=== PATIENT | female | born 1980 | race African-American/Black ===

== ENCOUNTER 2020-10-26 07:56 | Emergency (ER) | payer BC ==
[2020-10-26 08:11] VITALS: TEMP 98.9; BMI 23.4
[2020-10-26] MEDS ORDERED: ACETAMINOPHEN 325 MG TABLET (FP) PO ONE (08:44)
[2020-10-26] MEDS ORDERED: ACETAMINOPHEN 325 MG TABLET (FP) ONE (09:13)
[2020-10-26 10:09] LABS: CHLORIDE 103 mmol/L (98-107); SODIUM 138 mmol/L (136-145)
[2020-10-26 10:10] LABS: BASO % 0.7 % (0-2.0); EOS % 2.6 % (0-4.5); HEMATOCRIT 39.3 % (32.4-45.2); HEMOGLOBIN 12.8 GM/dL (10.7-15.3); LYMPH % 16.3 % (8-40); MCH 28.3 pg (25.7-33.7); MCHC 32.7 g/dl (32.0-36.0); MEAN CELL VOLUME 86.6 fl (80-96); MEAN PLT VOLUME 8.3 fl (7.5-11.1); MONO % 6.1 % (3.8-10.2); NEUT % 74.3 % (42.8-82.8); PLATELET COUNT 422 K/MM3 (134-434); RBC 4.53 M/mm3 (3.60-5.2); WHITE BLOOD COUNT 12.4 K/mm3 (4.0-10.0)
[2020-10-26 10:11] LABS: ALBUMIN 4.2 g/dl (3.4-5.0); ANION GAP 9 MMOL/L (8-16); BLOOD UREA NITROGEN 8.2 mg/dL (7-18); CO2 27 mmol/L (21-32); GLUCOSE,RANDOM 87 mg/dL (74-106); LIPASE 46 U/L (73-393)
[2020-10-26 10:14] LABS: SGOT/AST 20 U/L (15-37); SGPT/ALT 26 U/L (13-61)
[2020-10-26 10:16] LABS: BILIRUBIN,TOTAL 0.8 mg/dL (0.2-1); TOT PROT 7.1 g/dl (6.4-8.2)
[2020-10-26 10:17] LABS: URINE APPEARANCE CLEAR; URINE BILIRUBIN 1+ (NEGATIVE); URINE COLOR DK YELLOW; URINE GLUCOSE (UA) NEGATIVE (NEGATIVE); URINE KETONE 1+ (NEGATIVE); URINE LEUK ESTERASE NEGATIVE (NEGATIVE); URINE NITRITE NEGATIVE (NEGATIVE); URINE PROTEIN TRACE (NEGATIVE)
[2020-10-26 10:17] LABS: ALK PHOS 72 U/L (45-117)
[2020-10-26 10:20] LABS: HCG,QUALITATIVE URINE Negative
[2020-10-26 10:25] LABS: CREATININE 0.6 mg/dL (0.55-1.3)
[2020-10-26 14:53] VITALS: BP 123/86; PULSE 68
== END 2020-10-26 14:53 | disposition home or self-care (01) ==
LOC: JER 07:56
DX: R14.0 Abdominal distension (gaseous) (principal)
CPT/HCPCS: 36415; 71046-TC-FY; 74177-TC; 80053; 81003; 83690; 84484; 84703; 85025; 87086; 93005; 93010; 99285-25; Q9967

== ENCOUNTER 2021-02-13 11:21 | Inpatient (IN) | payer BC ==
[2021-02-13 13:39] LABS: BASO % 1.2 % (0-2.0); EOS % 3.5 % (0-4.5); HEMATOCRIT 42.6 % (32.4-45.2); HEMOGLOBIN 14.2 GM/dL (10.7-15.3); MCH 28.3 pg (25.7-33.7); MCHC 33.3 g/dl (32.0-36.0); MEAN PLT VOLUME 7.9 fl (7.5-11.1); MONO % 6.3 % (3.8-10.2); PLATELET COUNT 476 10^3/uL (134-434); RBC 5.01 M/mm3 (3.60-5.2); RDW 13.9 % (11.6-15.6); WHITE BLOOD COUNT 9.9 K/mm3 (4.0-10.0)
[2021-02-13 13:43] LABS: URINE APPEARANCE CLEAR; URINE BILIRUBIN NEGATIVE (NEGATIVE); URINE COLOR YELLOW; URINE GLUCOSE (UA) NEGATIVE (NEGATIVE); URINE KETONE NEGATIVE (NEGATIVE); URINE LEUK ESTERASE NEGATIVE (NEGATIVE); URINE NITRITE NEGATIVE (NEGATIVE); URINE PROTEIN NEGATIVE (NEGATIVE); URINE UROBILINOGEN 0.2 mg/dL (0.2-1.0)
[2021-02-13 14:04] LABS: ALBUMIN 4.2 g/dl (3.4-5.0); CALCIUM 9.8 mg/dL (8.5-10.1)
[2021-02-13 14:05] LABS: BLOOD UREA NITROGEN 9.1 mg/dL (7-18)
[2021-02-13 14:08] LABS: CREATININE 0.7 mg/dL (0.55-1.3); PHOSPHOROUS 3.6 mg/dL (2.5-4.9)
[2021-02-13 14:09] LABS: BILIRUBIN,TOTAL 0.5 mg/dL (0.2-1); TOT PROT 7.8 g/dl (6.4-8.2)
[2021-02-13] MEDS ORDERED: ASPIRIN 81 MG CHEWABLE TABLETS PO ONE ×2 (14:28→16:34)
[2021-02-13] MEDS ORDERED: ASPIRIN 81 MG CHEWABLE TABLETS ONE ×2 (14:53→16:45)
[2021-02-14 02:10] VITALS: BMI 24.8
[2021-02-14 08:22] LABS: EOS % 4.4 % (0-4.5); HEMATOCRIT 39.9 % (32.4-45.2); HEMOGLOBIN 13.5 GM/dL (10.7-15.3); LYMPH % 38.2 % (8-40); MCH 28.5 pg (25.7-33.7); MCHC 33.9 g/dl (32.0-36.0); MEAN PLT VOLUME 7.7 fl (7.5-11.1); MONO % 7.3 % (3.8-10.2); NEUT % 47.1 % (42.8-82.8); PLATELET COUNT 423 10^3/uL (134-434); RBC 4.75 M/mm3 (3.60-5.2); RDW 13.8 % (11.6-15.6); WHITE BLOOD COUNT 8.7 K/mm3 (4.0-10.0)
[2021-02-14 08:42] LABS: CALCIUM 8.8 mg/dL (8.5-10.1)
[2021-02-14 08:43] LABS: ALBUMIN 3.7 g/dl (3.4-5.0); BLOOD UREA NITROGEN 12.9 mg/dL (7-18); MAGNESIUM 1.8 mg/dL (1.8-2.4)
[2021-02-14 08:46] LABS: CREATININE 0.7 mg/dL (0.55-1.3)
[2021-02-14 08:47] LABS: BILIRUBIN,TOTAL 0.5 mg/dL (0.2-1)
[2021-02-14] MEDS: ASPIRIN 81 MG CHEWABLE TABLETS PO SCH (11:49)
[2021-02-14] MEDS: ENOXAPARIN NA (PORCINE) 40 MG/0.4 ML DISP.SYRIN SQ SCH (11:49)
[2021-02-14 13:57] LABS: COCAINE, UR NEGATIVE (NEGATIVE); URINE BARBITURATES NEGATIVE (NEGATIVE)
[2021-02-14 13:59] LABS: OPIATES, URI NEGATIVE (NEGATIVE); PHENCYCLIDINE,URINE NEGATIVE (NEGATIVE)
[2021-02-14 14:15] LABS: METHADONE, UR NEGATIVE (NEGATIVE); URINE AMPHETAMINES NEGATIVE (NEGATIVE); URINE BENZODIAZEPINES NEGATIVE (NEGATIVE)
[2021-02-14 19:03] LABS: INR 0.97 (0.83-1.09); PROTHROMBIN TIME (PATIENT) 11.9 SEC (9.7-13.0)
[2021-02-14 19:06] LABS: ACTIVATED PTT 36.2 SECONDS (25.2-36.5)
[2021-02-14] MEDS: ATORVASTATIN CA 40 MG TABLET (FP) PO SCH (21:38)
[2021-02-15] MEDS ORDERED: ACETAMINOPHEN 1000 MG/100 ML VIAL (NON FORMULARY) IVPB ONE (01:55)
[2021-02-15 08:20] LABS: BASO % 1.2 % (0-2.0); EOS % 5.1 % (0-4.5); HEMATOCRIT 41.4 % (32.4-45.2); HEMOGLOBIN 13.8 GM/dL (10.7-15.3); LYMPH % 37.1 % (8-40); MCH 28.1 pg (25.7-33.7); MCHC 33.3 g/dl (32.0-36.0); MEAN CELL VOLUME 84.3 fl (80-96); MEAN PLT VOLUME 7.7 fl (7.5-11.1); MONO % 8.2 % (3.8-10.2); NEUT % 48.4 % (42.8-82.8); PLATELET COUNT 415 10^3/uL (134-434); RBC 4.91 M/mm3 (3.60-5.2); WHITE BLOOD COUNT 7.2 K/mm3 (4.0-10.0)
[2021-02-15 08:27] LABS: INR 0.98 (0.83-1.09); PROTHROMBIN TIME (PATIENT) 11.9 SEC (9.7-13.0)
[2021-02-15 08:30] LABS: ACTIVATED PTT 32.6 SECONDS (25.2-36.5)
[2021-02-15 08:47] LABS: BLOOD UREA NITROGEN 12.8 mg/dL (7-18); CALCIUM 8.9 mg/dL (8.5-10.1); MAGNESIUM 2.2 mg/dL (1.8-2.4)
[2021-02-15 08:50] LABS: CREATININE 0.7 mg/dL (0.55-1.3); PHOSPHOROUS 3.9 mg/dL (2.5-4.9)
[2021-02-15] MEDS: ENOXAPARIN NA (PORCINE) 40 MG/0.4 ML DISP.SYRIN SQ SCH (09:22)
[2021-02-15] MEDS: ASPIRIN 81 MG CHEWABLE TABLETS PO SCH (09:22)
[2021-02-15 13:32] LABS: HIV INTERPRETATION NEGATIVE (NEGATIVE)
[2021-02-15] MEDS: ATORVASTATIN CA 40 MG TABLET (FP) PO SCH (21:12)
[2021-02-16] MEDS: ASPIRIN 81 MG CHEWABLE TABLETS PO SCH (09:32)
[2021-02-16] MEDS: ENOXAPARIN NA (PORCINE) 40 MG/0.4 ML DISP.SYRIN SQ SCH (09:32)
[2021-02-16] MEDS ORDERED: SODIUM CHLORIDE 1,000 ML IV STA (12:20)
[2021-02-16 17:06] LABS: FREE KAPPA,SERUM 14.9 mg/L (3.3-19.4)
[2021-02-16] MEDS: ATORVASTATIN CA 40 MG TABLET (FP) PO SCH (21:15)
[2021-02-17 04:08] LABS: FREE KAP CHN UR 12.94 mg/L (0.63-113.79); KAPPA LAMBDA RATIO URIN 15.22 (1.03-31.76)
[2021-02-17] MEDS ORDERED: LACTATED RINGERS SOLUTION 1,000 ML/1,000 ML INFUS.BAG IV SCH (08:15)
[2021-02-17 08:48] LABS: HEMOGLOBIN 13.4 GM/dL (10.7-15.3); MCH 28.6 pg (25.7-33.7); MCHC 34.5 g/dl (32.0-36.0); MEAN PLT VOLUME 7.7 fl (7.5-11.1); PLATELET COUNT 389 10^3/uL (134-434); RDW 13.2 % (11.6-15.6); WHITE BLOOD COUNT 9.1 K/mm3 (4.0-10.0)
[2021-02-17 09:20] LABS: BLOOD UREA NITROGEN 13.2 mg/dL (7-18); CALCIUM 9.1 mg/dL (8.5-10.1)
[2021-02-17 09:23] LABS: CREATININE 0.6 mg/dL (0.55-1.3)
[2021-02-17] MEDS ORDERED: PT OWN MED DRAWER 7, Y5N ONE (12:31)
[2021-02-17 13:09] LABS: DRVVT - 30.9 sec (0.0-47.0)
[2021-02-17] MEDS: NICOTINE 14 MG/24 HOURS TOPICAL PATCH TD SCH (14:28)
[2021-02-17] MEDS: LISINOPRIL 5 MG TABLET PO SCH (14:28)
[2021-02-17] MEDS: ATORVASTATIN CA 40 MG TABLET (FP) PO SCH (22:02)
[2021-02-17] MEDS ORDERED: MELATONIN 5 MG TABLETS PO ONE (23:18)
[2021-02-18] MEDS ORDERED: PT OWN MED DRAWER 7, Y5N ONE (09:52)
[2021-02-18] MEDS: ENOXAPARIN NA (PORCINE) 40 MG/0.4 ML DISP.SYRIN SQ SCH (09:58)
[2021-02-18] MEDS: ASPIRIN 81 MG CHEWABLE TABLETS PO SCH (09:58)
[2021-02-18] MEDS: LISINOPRIL 5 MG TABLET PO SCH (09:59)
[2021-02-18] MEDS: NICOTINE 14 MG/24 HOURS TOPICAL PATCH TD SCH (09:59)
[2021-02-18] MEDS: GABAPENTIN 100 MG CAPSULE PO SCH ×2 (13:29→21:29)
[2021-02-18] MEDS: ATORVASTATIN CA 40 MG TABLET (FP) PO SCH (21:29)
[2021-02-19] MEDS: GABAPENTIN 100 MG CAPSULE PO SCH ×3 (05:58→22:58)
[2021-02-19] MEDS ORDERED: PT OWN MED DRAWER 7, Y5N ONE (10:26)
[2021-02-19] MEDS: ENOXAPARIN NA (PORCINE) 40 MG/0.4 ML DISP.SYRIN SQ SCH (10:27)
[2021-02-19] MEDS: ASPIRIN 81 MG CHEWABLE TABLETS PO SCH (10:27)
[2021-02-19] MEDS: LISINOPRIL 5 MG TABLET PO SCH (10:28)
[2021-02-19] MEDS: NICOTINE 14 MG/24 HOURS TOPICAL PATCH TD SCH (10:28)
[2021-02-19] MEDS: VALSARTAN 80 MG TABLET PO SCH (10:31)
[2021-02-19] MEDS ORDERED: ACETAMINOPHEN 1000 MG/100 ML VIAL (NON FORMULARY) IVPB ONE (21:14)
[2021-02-19] MEDS: ATORVASTATIN CA 40 MG TABLET (FP) PO SCH (22:59)
[2021-02-19] MEDS ORDERED: MELATONIN 5 MG TABLETS PO ONE (23:55)
[2021-02-20] MEDS: GABAPENTIN 100 MG CAPSULE PO SCH ×2 (05:22→14:27)
[2021-02-20 08:30] LABS: BLOOD UREA NITROGEN 13.2 mg/dL (7-18)
[2021-02-20 08:33] LABS: CREATININE 0.7 mg/dL (0.55-1.3)
[2021-02-20] MEDS ORDERED: PT OWN MED DRAWER 7, Y5N ONE (09:51)
[2021-02-20] MEDS: VALSARTAN 80 MG TABLET PO SCH (10:03)
[2021-02-20] MEDS: ASPIRIN 81 MG CHEWABLE TABLETS PO SCH (10:03)
[2021-02-20] MEDS: ENOXAPARIN NA (PORCINE) 40 MG/0.4 ML DISP.SYRIN SQ SCH (10:03)
[2021-02-20] MEDS: NICOTINE 14 MG/24 HOURS TOPICAL PATCH TD SCH (10:03)
[2021-02-20] MEDS ORDERED: ACETAMINOPHEN 325 MG TABLET (FP) PO PRN (10:05)
[2021-02-20 13:05] VITALS: BP 125/83; PULSE 109; TEMP 98.1
== END 2021-02-20 17:13 | disposition home or self-care (01) | DRG 65 ==
LOC: JER 11:21 → JERBED 14:26 → J4S 21:17
PROVIDERS: ADMIT Internal Medicine
DX: I63.9 Cerebral infarction, unspecified (principal); I42.8 Other cardiomyopathies; I24.8 Other forms of acute ischemic heart disease; E85.9 Amyloidosis, unspecified; K21.9 Gastro-esophageal reflux disease without esophagitis; J45.909 Unspecified asthma, uncomplicated; F17.210 Nicotine dependence, cigarettes, uncomplicated; R07.89 Other chest pain; E78.00 Pure hypercholesterolemia, unspecified; R29.700 NIHSS score 0; I65.22 Occlusion and stenosis of left carotid artery; I10 Essential (primary) hypertension; M54.5 Low back pain; R77.8 Other specified abnormalities of plasma proteins
CPT/HCPCS: 36415; 70450-TC; 70498-TC; 70553-TC; 71045-TC-FY; 71046-TC-FY; 80048; 80053; 80061; 80307; 81003; 81240; 81241; 82728; 82784; 82962; 83036; 83540; 83550; 83735; 83883; 84100; 84155; 84165; 84443; 84466; 84484; 85025; 85027; 85300; 85597; 85610; 85613; 85730; 85732; 86038; 86146; 86147; 87086; 87389; 88300-TC; 93005; 93010; 93306-TC; 93880-TC; 97116-GP; 97161-GP; 99285-25; A9579; C9803; J0131; Q9967; U0003; U0005

== ENCOUNTER 2021-08-30 09:38 | Emergency (ER) | payer BC ==
[2021-08-30 09:56] VITALS: BP 118/46; PULSE 62; TEMP 98.3
[2021-08-30] MEDS ORDERED: KETOROLAC TROMETHAMINE 60 MG/2 ML VIAL IM ONE (10:58)
[2021-08-30] MEDS ORDERED: KETOROLAC TROMETHAMINE 60 MG/2 ML VIAL ONE (11:22)
== END 2021-08-30 11:29 | disposition home or self-care (01) ==
LOC: JER 09:38
PROC: 3E023GC Introduction of Other Therapeutic Substance into Muscle, Percutaneous Approach (ICD-10-PCS; principal; 2021-08-30)
DX: M25.561 Pain in right knee (principal); M25.562 Pain in left knee
CPT/HCPCS: 99284-25

== ENCOUNTER 2022-12-24 05:29 | Day surgery (SDC) | payer BC ==
[2022-12-18 18:05] VITALS: BMI 26.2
[2022-12-24] MEDS ORDERED: PROPOFOL 20 ML ONE (13:12)
[2022-12-24] MEDS ORDERED: DEXAMETHASONE SOD PHOSPHATE 4 MG/1 ML VIAL ONE (13:12)
[2022-12-24] MEDS ORDERED: ONDANSETRON 4 MG/2 ML VIAL ONE (13:12)
[2022-12-24] MEDS ORDERED: SEVOFLURANE 250 ML BTL ONE (13:12)
[2022-12-24] MEDS ORDERED: LIDOCAINE HCL/PF 2% SDV 5ML VIAL ONE (13:12)
[2022-12-24] MEDS ORDERED: KETOROLAC TROMETHAMINE 30 MG/1 ML VIAL ONE (13:15)
[2022-12-24] MEDS ORDERED: PROMETHAZINE HCL 25 MG/1 ML VIAL IVPB PRN (13:27)
[2022-12-24] MEDS ORDERED: ONDANSETRON 4 MG/2 ML VIAL IVPUSH PRN (13:27)
[2022-12-24] MEDS ORDERED: oxyCODONE HCL 5 MG TABLET PO PRN ×2 (13:27)
[2022-12-24] MEDS ORDERED: ACETAMINOPHEN 1000 MG/100 ML BAG IVPB PRN (13:27)
[2022-12-24] MEDS ORDERED: LACTATED RINGERS SOLUTION 1,000 ML IV SCH (13:30)
[2022-12-24] MEDS ORDERED: ceFAZolin SODIUM 1 GM VIAL IVPB ONE (13:48)
[2022-12-24] MEDS ORDERED: ceFAZolin SODIUM 1 GM VIAL ONE (13:49)
[2022-12-24] MEDS ORDERED: ACETAMINOPHEN INJECTION 100 ML IVPB ONE (14:45)
[2022-12-24 17:12] VITALS: RESP 20; TEMP 97.7
[2022-12-24 17:22] VITALS: BP 109/64; PULSE 62
== END 2022-12-24 16:24 | disposition home or self-care (01) ==
LOC: JASU-SURG 05:29
PROVIDERS: ATTEND Obstetrics & Gynecology
PROC: 0UDB8ZZ Extraction of Endometrium, Via Natural or Artificial Opening Endoscopic (ICD-10-PCS; principal; 2022-12-24 12:00)
DX: N93.8 Other specified abnormal uterine and vaginal bleeding (principal); D25.9 Leiomyoma of uterus, unspecified; N85.6 Intrauterine synechiae
CPT/HCPCS: 76998-TC; 81025; 88305-TC; 88341-TC; 88342-TC; 94760

== ENCOUNTER 2025-02-01 22:11 | Emergency (ER) | payer BC, OTHER ==
[2025-02-01 22:25] VITALS: RESP 18; TEMP 98; BMI 29.2
[2025-02-01 23:41] LABS: ABSOLUTE IMMATURE GRANULOCYTES 0.03 x10^3/uL (0.0-0.031); BASOPHILS # 0.08 x10^3/uL (0.01-0.08); EOSINOPHIL % 5.8 % (0.7-5.8); EOSINOPHILS # 0.46 x10^3/uL (0.04-0.36); MCHC 32.6 g/dl (32.2-35.5); MEAN CELL VOLUME 86.9 fl (79.4-94.8); MEAN PLT VOLUME 9.1 fl (9.4-12.3); MONOCYTE # 0.68 x10^3/uL (0.24-0.86); MONOCYTE % 8.6 % (4.7-12.5); RDW 14.8 % (12.2-17.1)
[2025-02-01 23:52] LABS: INR 1.12 (0.83-1.09); PROTHROMBIN TIME (PATIENT) 12.3 SEC (9.7-13.0)
[2025-02-01 23:55] LABS: ACTIVATED PTT 28.7 SECONDS (25.2-36.5)
[2025-02-02 00:02] LABS: GLUCOSE,RANDOM 104.0 mg/dL (74-106); TOT PROT 7.1 g/dl (6.4-8.2)
[2025-02-02 00:03] LABS: CO2 25.0 mmol/L (21-32)
[2025-02-02 00:05] LABS: ALK PHOS 87.0 U/L (40-150)
[2025-02-02 00:08] LABS: SGOT/AST 46.0 U/L (5-34); SGPT/ALT 44.0 U/L (0-55)
[2025-02-02 00:28] LABS: HCV DIAGNOSTIC IN-HOUSE W/RFLX NON-REACTIVE (NONREACTIVE)
[2025-02-02 00:29] LABS: HIV INTERPRETATION NEGATIVE (NEGATIVE)
[2025-02-02 00:49] LABS: CREATININE 1.05 mg/dL (0.55-1.3)
[2025-02-02 01:13] VITALS: BP 137/84; PULSE 72
== END 2025-02-02 01:13 | disposition home or self-care (01) ==
LOC: JER 22:11
DX: R07.89 Other chest pain (principal); H53.8 Other visual disturbances; J02.9 Acute pharyngitis, unspecified
CPT/HCPCS: 36415; 71045-TC-FY; 80053; 83735; 84484; 85025; 85610; 85730; 86803; 87389; 93005; 93010; 99285-25